=== PATIENT | female | born 1955 | race Caucasian/White ===

== ENCOUNTER 2023-12-08 13:31 | Outpatient (CLI) | payer MEDICARE, SELFPAY ==
--- NOTE | ~2023-12-08 | MM_ITS ---
EXAMINATION: MM screening ottoniel BI w vance HISTORY: Screening TECHNIQUE: Craniocaudal and mediolateral oblique 3-D tomosynthesis images were obtained and synthetic 2-D images were generated. CAD analysis was submitted and interpreted. COMPARISON: No prior mammogram is available for comparison at this institution. BREAST PARENCHYMAL COMPOSITION: Not dense: There are scattered areas of fibroglandular density. FINDINGS: There is a focal asymmetry in the periareolar location of the right breast, located lateral ly on CC view. No evidence for malignancy in the left breast. IMPRESSION: 1. Right breast asymmetry. 2. Additional mammographic views and possible breast ultrasound are recommended. BI-RADS Category 0: Incomplete: Needs additional imaging evaluation. Reviewed, dictated and finalized at location B. IMPRESSION: 1. Right breast asymmetry. 2. Additional mammographic views and possible breast ultrasound are recommended . BI-RADS Category 0: Incomplete: Needs additional imaging evaluation.
== END 2023-12-08 13:32 | disposition home or self-care (01) ==
PROVIDERS: PCP Family Medicine; Visit Provider Family Medicine
DX: Z12.31 Encounter for screening mammogram for malignant neoplasm of breast (principal); R92.8 Other abnormal and inconclusive findings on diagnostic imaging of breast
CPT/HCPCS: 77063; 77067

== ENCOUNTER 2023-12-14 09:24 | Outpatient (CLI) | payer MEDICARE, SELFPAY ==
--- NOTE | ~2023-12-14 | MMUS_ITS ---
EXAMINATION: MM diagnostic ottoniel RT w vanec, US breast RT limited HISTORY: Follow-up right breast asymmetry. TECHNIQUE: Additional 3-D tomosynthesis images of the right breast were performed and synthetic 2-D i mages were generated. CAD analysis was submitted and interpreted. High resolution Limited right breas t ultrasound was performed. COMPARISON: 12/08/2023 BREAST PARENCHYMAL COMPOSITION: Not dense: There are scattered areas of fibroglandular density. FINDINGS: MAMMOGRAPHIC FINDINGS: There is heterogeneous soft tissue in the periareolar location of the right breast. No discrete mass or architectural distortion is identified. ULTRASOUND: Limited right breast ultrasound: At the 9:00 position near the nipple there is posterior shadowing, a lthough no definable mass is identified for biopsy. IMPRESSION: 1. Probable benign findings of the right breast. 2. Recommend 6 month follow-up diagnostic right mammogram and Limited right breast ultrasound BI-RADS category 3, probably benign findings. Reviewed, dictated and finalized at location B. IMPRESSION: 1. Probable benign findings of the right breast. 2. Recommend 6 month follow-up diagnostic right mammogram and Limited right edmund ast ultrasound BI-RADS category 3, probably benign findings.
== END 2023-12-14 09:25 | disposition home or self-care (01) ==
PROVIDERS: PCP Family Medicine; Visit Provider Family Medicine
DX: R92.8 Other abnormal and inconclusive findings on diagnostic imaging of breast (principal)
CPT/HCPCS: 76642; 77061; 77065; G0279

== ENCOUNTER 2024-02-09 10:43 | Outpatient (CLI) | payer MEDICARE, SELFPAY ==
[2024-02-09 11:00] LABS: Basophils Absolute Auto 0.06 K/mm3 (0.00-0.10); Basophils Percent Auto 0.8 % (0.0-1.0); Eosinophils Absolute Auto 0.28 K/mm3 (0.02-0.50); Eosinophils Percent Auto 3.5 % (1.0-6.0); Hematocrit 34.8 % (35.0-42.0); Hemoglobin 11.3 g/dL (11.7-13.8); Immature Granulocyte Absolute 0.02 K/mm3 (0.00-0.00); Immature Granulocyte Percent A 0.3 % (0.0-0.0); Lymphocytes Absolute Auto 3.38 K/mm3 (1.10-4.50); Lymphocytes Percent Auto 42.3 % (18.0-42.0); Mean Corpuscular HGB Conc 32.5 g/dL (32-36); Mean Corpuscular Hemoglobin 31.3 pg (27.0-31.0); Mean Corpuscular Volume 96.4 fL (78.0-102.0); Mean Platelet Volume 9.2 fl (9.2-11.8); Monocytes Absolute Auto 0.65 K/mm3 (0.10-0.90); Monocytes Percent Auto 8.1 % (2.0-11.0); Platelet Count Result 366 K/mm3 (150-420); Red Blood Count 3.61 M/mm3 (4.20-5.40); Red Cell Distribution Width 14.5 % (11.6-14.4)
[2024-02-09 11:20] LABS: Hemoglobin A1C 6.5 % (<5.7)
[2024-02-09 11:47] LABS: Alanine Aminotransferase 24 U/L (14-59); Albumin Level 3.9 g/dL (3.4-5.0); Alkaline Phosphatase 73 U/L (46-116); Anion Gap 4 mmol/L (4-12); Aspartate Amino Transferase 18 U/L (15-37); Bilirubin,Total 0.3 mg/dL (0.00-1.00); Blood Urea Nitrogen 7 mg/dL (7-18); Calcium 10.1 mg/dL (8.5-10.1); Carbon Dioxide 32 mmol/L (21-32); Chloride 102 mmol/L (98-108); Cholesterol 159 mg/dL (0-200); Estimated Glomerular Filt Rate > 60; Glucose 92 mg/dL (70-99); HDL Direct 43 mg/dL (40-60); LDL Cholesterol Calculated 85 mg/dL (<130); Osmolality Calculated 284 mOsm/kg (285-295); Potassium 3.7 mmol/L (3.5-5.1); Sodium 138 mmol/L (136-145); Total Protein 6.8 g/dL (6.4-8.2); Triglycerides 157 mg/dL (0-150)
[2024-02-09 11:57] LABS: Thyroid Stimulating Hormone Reflex 0.16 u/IU/mL (0.36-3.74)
[2024-02-09 11:58] LABS: Free T4 Free Thyroxine Reflex 1.45 ng/dL (0.76-1.46)
== END 2024-02-09 10:44 | disposition home or self-care (01) ==
LOC: CHSLAB 10:46
PROVIDERS: PCP Family Medicine; Visit Provider Family Medicine
DX: N30.10 Interstitial cystitis (chronic) without hematuria (principal); E11.9 Type 2 diabetes mellitus without complications; E03.9 Hypothyroidism, unspecified
CPT/HCPCS: 36415; 80053; 80061; 83036; 84439; 84443; 85025

== ENCOUNTER 2024-02-15 08:57 | Outpatient (CLI) | payer MEDICARE, SELFPAY ==
[2024-02-15 09:17] LABS: Creatinine Urine 55.29 mg/dL (40-278); MALB Creatinine Ratio 23.5 mg/g (0-30); Microalbumin Urine Random < 13.0 mg/L
== END 2024-02-15 08:58 | disposition home or self-care (01) ==
PROVIDERS: PCP Family Medicine; Visit Provider Family Medicine
DX: E11.9 Type 2 diabetes mellitus without complications (principal); N30.10 Interstitial cystitis (chronic) without hematuria; E03.9 Hypothyroidism, unspecified
CPT/HCPCS: 82043

== ENCOUNTER 2025-02-28 11:17 | Outpatient (CLI) | payer MEDICARE, SELFPAY ==
[2025-02-28 11:38] LABS: Hematocrit 35.5 % (35.0-42.0); Hemoglobin 11.2 g/dL (11.7-13.8); Immature Granulocyte Percent A 0.2 % (0.0-0.0); Lymphocytes Absolute Auto 2.45 K/mm3 (1.10-4.50); Mean Corpuscular HGB Conc 31.5 g/dL (32-36); Mean Corpuscular Hemoglobin 30.8 pg (27.0-31.0); Mean Corpuscular Volume 97.5 fL (78.0-102.0); Nucleated Red Blood Cells Absolute Auto 0.00 K/mm3 (0.00-0.00); Nucleated Red Blood Cells Perc 0.0 % (0-0.0); Platelet Count Result 320 K/mm3 (150-420); Red Blood Count 3.64 M/mm3 (4.20-5.40); White Blood Count 6.2 K/mm3 (4.8-10.8)
--- OUTSIDE RECORDS SUMMARY | 2025-02-28 11:41 | XMS_ITS | Clinical Summary ---
Author Organization [facility] Address [address] [place] [address] Care Team Providers Care Machine Specialist Name Role Phone Albino De Dios DO Primary Care Provider Allergies Active Allergy Reactions Criticality Noted Date Comments Ampicillin Hives 12/28/2023 Eggs Hives 12/28/2023 Penicillins Hives 12/28/2023 Sulfa Antibiotics Rash Low 01/14/2025 Medications levothyroxine (SYNTHROID) 88 MCG tablet Take 1 tablet (88 mcg total) by mouth every morning. Active DULoxetine (CYMBALTA) 60 MG capsule Take 1 capsule (60 mg total) by mouth daily. Active ondansetron (ZOFRAN-ODT) 4 MG disintegrating tablet Take 1 tablet (4 mg total) by mouth every 8 (eight) hours as needed for Nausea. 12 tablet Active mirtazapine (REMERON) 7.5 MG Tab tablet Take 1 tablet (7.5 mg total) by mouth nightly at bedtime. Active lisinopril (PRINIVIL) 10 MG tablet Take 1 tablet (10 mg total) by mouth daily. Active mirabegron ER (MYRBETRIQ) 25 MG 24 hr tablet Take 1 tablet (25 mg total) by mouth daily. Active atorvastatin (LIPITOR) 40 MG tablet Take 1 tablet (40 mg total) by mouth nightly at bedtime. Active busPIRone (BUSPAR) 15 MG tablet Take 1 tablet (15 mg total) by mouth 2 (two) times daily. Active pioglitazone (ACTOS) 15 MG tablet Take 1 tablet (15 mg total) by mouth daily. Active fenofibrate (TRICOR) 145 MG tablet Take 1 tablet (145 mg total) by mouth daily. Active Galcanezumab-gnlm (EMGALITY) 120 MG/ML Solution Prefilled Syringe Ac tive amLODIPine (NORVASC) 5 MG tablet Take 1 tablet (5 mg total) by mouth daily. Active buprenorphine (BUTRANS) 20 MCG/HR PATCH WEEKLY patch Place 1 patch onto the skin every 7 days. Active dicyclomine (BENTYL) 20 MG tablet Take 1 tablet (20 mg total) by mouth 4 (four) times daily. Active fenofibrate micronized (LOFIBRA) 134 MG capsule Take 1 capsule (134 mg total) by mouth daily. Active traMADol (ULTRAM) 50 MG tablet Take 1 tablet (50 mg total) by mouth 4 (four) times daily. Active Active Problems No known active problems Encounters Date Type Department Care Team Description 01/20/2025 10:00 AM CDT Anesthesia Event [facility] [place] [address] [place] [address] Sergio Romano MD Purchatzke, Tyson L, CRNA 01/20/2025 9:32 AM CDT - 01/20/2025 10:00 AM CDT Surgery [facility] [address] [place] [address] Quita Quigley MD extraction cataract RIGHT eye with lens implant 01/20/2025 8:34 AM CDT - 01/20/2025 10:37 AM CDT Hospital Encounter [facility] [place] [address] [place] [address] Quita Quigley MD Discharge Disposition: Home or Self Care (Routine Discharge) 01/20/2025 Travel 01/14/2025 Travel from Last 3 Months Social History Tobacco Use Types Packs/Day Years Used Date Smoking Tobacco: Never Smokeless Tobacco: Never Tobacco Cessation:Counseling Given: Not Answered Alcohol Use Standard Drinks/Week Comments Not Currently 0 (1 standard drink = 0.6 oz pur e alcohol) Comments No Sex and Gender Information Value Date Recorded Sex Assigned at Not on file Legal Sex Female 2:43 PM CDT Gender Identity Not on file Sexual Orientation Not on file Last Filed Vital Signs Vital Sign Reading Time Taken Comments Blood Pressure 139/56 01/20/2025 10:19 AM CDT Pulse 100 01/20/2025 10:19 AM CDT Temperature 36.4 C (97.6 F) 01/20/2025 10:19 AM CDT Respiratory Rate 16 01/20/2025 10:19 AM CDT Oxygen Saturation 98% 01/20/2025 10:19 AM CDT Inhaled Oxygen Concentration - - Weight 65.8 kg (145 lb) 01/14/2025 8:00 AM CDT Height 154.9 cm (5' 1) 01/14/2025 8:00 AM CDT Body Mass Index 27.4 01/14/2025 8:00 AM CDT Plan of Treatment Health Maintenance Due Date Last Done Comments Colorectal Cancer Screening Colonoscopy (10 Years) 1953 Hepatitis C 1971 DTaP, Tdap and Td Vaccines ( 1 - Tdap) 01/08/1972 Mammogram Screening 1993 Pneumococcal Vaccine: 50+ Ye ars (1 of 1 - PCV) 2003 Zoster Vaccines (1 of 2) 2003 Annual Medicare Wellness Visit 2018 Dexa Scan (General) 2018 COVID-19 Vaccine ( - 2023-2 5 season) 2024 RSV Immunization or 60+ Years (1 - 1-dose 75+ series) 01/08/2028 Meningococcal B Vaccine Aged Out No l onger eligible based on patient's age to complete this topic Meningococcal Vaccine Aged Out No james nataly eligible based on patient's age to complete this topic RSV Immunizations Under 20 Months Aged Out No longer eligible based on patient's age to complete this topic Medical Devices Implanted Type Area Stitcher Feeder Device Identifier Shelf Expiration Date Model / Serial / Lot Rayone Preloaded Iol Implanted:Qty: 1 on 01/20/2025 by Quita Quigley MD at [facility] Right: Eye [id number] 03/29/2026 [id number] / [id number] / [id number] Procedures Procedure Name Priority Date/Time Associated Diagnosis Comments REMV CATARACT EXTRACAP,INSERT LENS 01/20/2025 9:55 AM CDT h25.9 POCT GLUCOSE - DOCKED DEVICE Routine 01/20/2025 9:21 AM CDT from Last 3 Months Results * POCT glucose (01/20/2025 9:21 AM CDT) GLUCOSE POC 97 70 - 99 MG/DL 01/20/2025 9:41 AM CDT [facility] 01/20/2025 9:21 AM CDT Quita Quigley MD POCT ORDERABLES - DEVICE Final Result [facility] [address] [place] [id number], [place] [phone] from Last 3 Months Insurance MEDICARE [facility] Care Teams Machine Specialist Relationship Specialty Start Date End Date Albino De Dios DO [address] [place] [address] PCP - General FAMILY PRACTICE 12/28/23
[2025-02-28 12:05] LABS: Alanine Aminotransferase 15 U/L (6-35); Albumin Level 4.4 g/dL (3.5-5.1); Alkaline Phosphatase 56 U/L (38-126); Anion Gap 8 mmol/L (4-12); Aspartate Amino Transferase 23 U/L (14-36); Bilirubin,Total 0.5 mg/dL (0.2-1.3); Blood Urea Nitrogen 18 mg/dL (7-17); Calcium 10.7 mg/dL (8.4-10.2); Carbon Dioxide 30 mmol/L (22-30); Chloride 102 mmol/L (98-107); Cholesterol 180 mg/dL (0-200); Estimated Glomerular Filt Rate > 60; Glucose 89 mg/dL (65-110); HDL Direct 51 mg/dL; Osmolality Calculated 290 mOsm/kg (285-295); Potassium 4.7 mmol/L (3.4-5.0); Sodium 140 mmol/L (137-145); Total Protein 6.7 g/dL (6.3-8.2); Triglycerides 149 mg/dL (<150)
[2025-02-28 12:35] LABS: Thyroid Stimulating Hormone Reflex 1.610 uIU/mL (0.465-4.68)
[2025-02-28 13:09] LABS: Vitamin B12 359.0 pg/mL (239-931)
== END 2025-02-28 11:18 | disposition home or self-care (01) ==
LOC: CHSLAB 11:20
PROVIDERS: PCP Family Medicine; Visit Provider Family Medicine
DX: I10 Essential (primary) hypertension (principal); E53.8 Deficiency of other specified B group vitamins; E03.9 Hypothyroidism, unspecified
CPT/HCPCS: 36415; 80053; 80061; 82607; 82746; 84443; 85025

== ENCOUNTER 2025-05-09 09:43 | Outpatient (CLI) | payer MEDICARE, SELFPAY ==
[2025-05-09 09:54] LABS: Hematocrit 35.2 % (35.0-42.0); Hemoglobin 11.1 g/dL (11.7-13.8); Immature Granulocyte Percent A 0.2 % (0.0-0.0); Lymphocytes Absolute Auto 2.28 K/mm3 (1.10-4.50); Mean Corpuscular HGB Conc 31.5 g/dL (32-36); Mean Corpuscular Hemoglobin 30.6 pg (27.0-31.0); Mean Corpuscular Volume 97.0 fL (78.0-102.0); Nucleated Red Blood Cells Absolute Auto 0.00 K/mm3 (0.00-0.00); Nucleated Red Blood Cells Perc 0.0 % (0-0.0); Platelet Count Result 312 K/mm3 (150-420); Red Blood Count 3.63 M/mm3 (4.20-5.40); White Blood Count 5.9 K/mm3 (4.8-10.8)
[2025-05-09 10:22] LABS: Alanine Aminotransferase 17 U/L (6-35); Albumin Level 4.6 g/dL (3.5-5.1); Alkaline Phosphatase 75 U/L (38-126); Anion Gap 10 mmol/L (4-12); Aspartate Amino Transferase 25 U/L (14-36); Blood Urea Nitrogen 15 mg/dL (7-17); Calcium 10.4 mg/dL (8.4-10.2); Carbon Dioxide 29 mmol/L (22-30); Chloride 104 mmol/L (98-107); Estimated Glomerular Filt Rate > 60; Glucose 97 mg/dL (65-110); Osmolality Calculated 296 mOsm/kg (285-295); Potassium 4.0 mmol/L (3.4-5.0); Sodium 143 mmol/L (137-145); Total Protein 7.0 g/dL (6.3-8.2)
[2025-05-09 10:31] LABS: NT Pro B Type Natriuretic Pept 132 pg/mL (19.9-100)
[2025-05-09 10:54] LABS: Thyroid Stimulating Hormone Reflex 1.330 uIU/mL (0.465-4.68)
--- OUTSIDE RECORDS SUMMARY | 2025-05-09 10:59 | XMS_ITS | Clinical Summary ---
Author Organization [facility] Address [address] [place] [address] Care Team Providers Care Quartz Miner Name Role Phone Albino De Dios DO Primary Care Provider [phone] Allergies Active Allergy Reactions Criticality Noted Date [...] tablet (5 mg total) by mouth daily. 5 Active buprenorphine (BUTRANS) 20 MCG/HR PATCH WEEKLY patch Place 1 patch onto the skin every 7 days. Active dicyclomine (BENTYL) 20 MG tablet Take 1 tablet (20 mg total) by mouth 4 (four) times daily. 5 Active fenofibrate micronized (LOFIBRA) 134 MG capsule Take 1 capsule (134 mg total) by mouth daily. 5 Active traMADol (ULTRAM) 50 MG tablet Take 1 tablet (50 mg total) by mouth 4 (four) times daily. Active omeprazole (PRILOSEC) 20 MG capsule Take 1 capsule (20 mg total) by mouth daily. Active WIXELA INHUB 100-50 MCG/ACT inhaler Inhale 1 puff into the lungs every 12 (twelve) hours. 5 Active prednisoLONE acetate (PRED FORTE) 1 % ophthalmic suspension 5 Active Active Problems No known active problems Encounters Date Type Department Care Team Description 03/12/2025 1:05 PM CDT - 03/12/2025 1:37 PM CDT [place] [address] Quita Quigley MD extraction cataract LEFT eye with lens implant 03/12/2025 12:55 PM CDT [place] [address] Teresa Richard CRNA 03/12/2025 11:27 AM CDT - 03/12/2025 1:46 PM CDT [place] [address] Quita Quigley MD Discharge Disposition: Home or Self Care (Routine Discharge) 03/12/2025 Travel from Last 3 Months Social History Tobacco Use Types Packs/Day Years Used Date Smoking Tobacco: Never Smokeless Tobacco: Never Tobacco Cessation:Counseling Given: Not Answered Alcohol Use Standard Drinks/Week Comments Not Currently 0 (1 standard drink = 0.6 oz pur e alcohol) Comments No Sex and Gender Information Value Date Recorded Sex Assigned at Female 03/12/2025 11:26 AM CDT Legal Sex Female 2:43 PM CDT Gender Identity Not on file Sexual Orientation Not on file Last Filed Vital Signs Vital Sign Reading Time Taken Comments Blood Pressure 129/65 03/12/2025 1:18 PM CDT Pulse 91 03/12/2025 1:18 PM CDT Temperature 36.9 C (98.4 F) 03/12/2025 1:18 PM CDT Respiratory Rate 16 03/12/2025 1:18 PM CDT Oxygen Saturation 100% 03/12/2025 1:18 PM CDT Inhaled Oxygen Concentration - - Weight 65.8 kg (145 lb) 03/12/2025 12:02 PM CDT Height 154.9 cm (5' 1) 03/12/2025 12:02 PM CDT Body Mass Index 27.4 03/12/2025 12:02 PM CDT Plan of Treatment Health Maintenance Due [...] Scan (General) 2018 COVID-19 Vaccine ( - 2024-2 6 season) 2025 Influenza Adult (#1) 2025 RSV Immunization or 60+ Years (1 - 1-dose 75+ series) 01/08/2028 Hepatitis A Vaccines Aged Out No long er eligible based on patient's age to complete this topic Meningococcal B Vaccine Aged Out No l onger eligible based on patient's age to complete this topic Meningococcal Vaccine Aged Out No james nataly eligible based on patient's age to complete this topic RSV Immunizations Under 20 Months Aged Out No longer eligible based on patient's age to complete this topic Medical Devices Implanted Type Area Manager Core Device Identifier Shelf Expiration Date Model / Serial / Lot Rayone Preloaded Iol Implanted:Qty: 1 on 01/20/2025 by Quita Quigley MD at [facility]: Eye [id number] 03/29/2026 [id number] / [id number] / [id number] Rayone Aspheric Us Implanted:Qty: 1 on 03/12/2025 by Quita Quigley MD at [facility] Left: Eye 09/17/2029 [id number] / [id number] / [id number] Procedures Procedure Name Priority Date/Time Associated Diagnosis Comments REMV CATARACT EXTRACAP,INSERT LENS 03/12/2025 12:50 PM CDT h25.9 Case Notes NO DIAMOX from Last [address] [facility] Care Teams Quartz Miner Relationship Specialty Start Date End Date lAbino De Dios DO [address] [place] [address] PCP - General FAMILY PRACTICE 12/28/23
[2025-05-13 16:05] LABS: Bilirubin,Total 0.3 mg/dL (0.2-1.3)
== END 2025-05-09 09:44 | disposition home or self-care (01) ==
PROVIDERS: PCP Family Medicine; Visit Provider Family Medicine
DX: E03.9 Hypothyroidism, unspecified (principal); I11.0 Hypertensive heart disease with heart failure; I50.9 Heart failure, unspecified
CPT/HCPCS: 36415; 80053; 83880; 84443; 85025

== ENCOUNTER 2025-06-12 14:52 | Outpatient (CLI) | payer MEDICARE, SELFPAY ==
[2025-06-12 15:17] LABS: Hematocrit 34.1 % (35.0-42.0); Hemoglobin 11.1 g/dL (11.7-13.8); Immature Granulocyte Percent A 0.4 % (0.0-0.0); Immature Platelet Fraction Pct 1.1 % (1.0-7.0); Lymphocytes Absolute Auto 2.25 K/mm3 (1.10-4.50); Mean Corpuscular HGB Conc 32.6 g/dL (32-36); Mean Corpuscular Hemoglobin 30.1 pg (27.0-31.0); Mean Corpuscular Volume 92.4 fL (78.0-102.0); Nucleated Red Blood Cells Absolute Auto 0.00 K/mm3 (0.00-0.00); Nucleated Red Blood Cells Perc 0.0 % (0-0.0); Platelet Count Result 663 K/mm3 (150-420); Red Blood Count 3.69 M/mm3 (4.20-5.40); White Blood Count 7.3 K/mm3 (4.8-10.8)
[2025-06-12 15:34] LABS: Alanine Aminotransferase 15 U/L (6-35); Albumin Level 3.8 g/dL (3.5-5.1); Alkaline Phosphatase 77 U/L (38-126); Anion Gap 7 mmol/L (4-12); Aspartate Amino Transferase 23 U/L (14-36); Bilirubin,Total 0.4 mg/dL (0.2-1.3); Blood Urea Nitrogen 11 mg/dL (7-17); Calcium 10.2 mg/dL (8.4-10.2); Carbon Dioxide 26 mmol/L (22-30); Chloride 102 mmol/L (98-107); Estimated Glomerular Filt Rate > 60; Glucose 113 mg/dL (65-110); Osmolality Calculated 280 mOsm/kg (285-295); Potassium 3.6 mmol/L (3.4-5.0); Sodium 135 mmol/L (137-145); Total Protein 6.4 g/dL (6.3-8.2)
== END 2025-06-12 14:53 | disposition home or self-care (01) ==
LOC: CHSLAB 14:54
PROVIDERS: PCP Family Medicine; Visit Provider Nurse Practitioner Family
DX: I50.9 Heart failure, unspecified (principal)
CPT/HCPCS: 36415; 80053; 85025; 85055